=== PATIENT | male | born 1970 | race Caucasian/White ===

== ENCOUNTER 2018-01-14 15:56 | Inpatient (IN) | payer BC, OTHER ==
[2018-01-14 16:41] LABS: #Basophils 0.1 thou/uL (0.0-0.2); #Eosinphils 0.1 thou/uL (0.0-0.7); #Lymphocytes 2.3 thou/uL (1.20-3.40); #Monocytes 0.5 thou/uL (0.11-0.59); #Neutrophils 3.9 thou/uL (1.40-6.50); %Eosinophils 1.5 % (0.0-10.0); %Lymphocytes 33.4 % (21.0-51.0); Hemoglobin 16.3 g/dL (14.0-18.0); Mean Corpuscular Hemoglobin 30.2 pg (27.0-31.0); Mean Corpuscular Volume 86.2 fl (80.0-94.0); Mean Platelet Volume 7.7 fL (7.4-10.4); Platelet Count 226 thou/uL (130-400); RBC Distribution Width 11.7 % (11.5-14.5); White Blood Cell (WBC) Count 6.8 thou/uL (4.8-10.8)
[2018-01-14 17:02] LABS: ALT (SGPT) 32 U/L (8-55); AST (SGOT) 28 U/L (5-34); Albumin 4.7 g/dL (3.5-5.0); Alkaline Phosphatase 65 U/L (40-150); Anion Gap 15 mmol/L (10-20); BUN (Urea Nitrogen) 21 mg/dL (8.9-20.6); Bilirubin, Total 0.6 mg/dL (0.2-1.2); CK (CPK) 77 U/L (30-200); Calc. Creatinine Clearance 0 mL/min (70-130); Calcium 10.1 mg/dL (7.8-10.44); Carbon Dioxide 26 mmol/L (22-29); Chloride 102 mmol/L (98-107); Estimated GFR-MDRD 56; Globulin 3.4 g/dL (2.4-3.5); Glucose 94 mg/dL (70-105); Protein, Total 8.1 g/dL (6.0-8.3); Sodium 139 mmol/L (136-145)
[2018-01-14 17:05] LABS: CKMB 2.6 ng/mL (0-6.6); Troponin I Less than 0.010 ng/mL (< 0.028)
--- NOTE | 2018-01-14 17:37 | RAD ---
RADIOGRAPH CHEST SINGLE VIEW: INDICATIONS: Chest pain. FINDINGS: No consolidation or effusion. The cardiac silhouette is normal in size for the portable technique. There are leads overlying the chest, limiting detail. IMPRESSION: No focal consolidation. POS: SUGAR
[2018-01-14 17:38] LABS: Acetaminophen Less than 6.0 mcg/mL (10.0-30.0); Alcohol Less than 10 mg/dL (Less than 10); Salicylate Less than 8.0 mg/dL (15.0-30.0)
--- NOTE | 2018-01-14 18:12 | PDOC.FPRHP ---
- History of Present Illness Chief Complaint: Heart palpitation History of Present Illness: This is a 47 yo M w/a history of heart palpitation who presented to the ED on the recommendation of his supervisor pumping Dr Agarwal. He is currently wearing a event monitor due to outpatient work up for his palpitations. 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 Additionally, he had associated chest tightness and SOB. He denies associated dizziness, n/v, diaphoresis. He denies previous cardiac hx. He was called by Dr Agarwal's office after logging the event and was told that his heart rate was over 260. It was recommended that he come into the ED for further evaluation. A recent Holter monitor found over 200 ectopic supraventricular beats in a 24 hour period. He also recently had an echo and stress test in the outpatient setting which showed only a mild apical defect. In the ED the patient initial troponin was negative and EKG showed NSR with ectopic beat SV beats - Allergies/Adverse Reactions Allergies Allergy/AdvReac Type Severity Reaction Status Date / Time No Known Allergies Allergy Verified 01/14/18 19:54 - Home Medications Medication Instructions Recorded Confirmed Type Multivitamin [Men's Multi-Vitamin] 1 tablet PO DAILY 01/14/18 01/14/18 History - History PMHx: Sinus tach PSHx: None FHx: Paternal CAD Maternal CAD Social: Denies tobacco use 2-3 beers per week Denies recreational drugs - Review of Systems General: denies: fever/chills, weight/appetite/sleep changes Eyes: denies: vision changes ENT: denies: nasal congestion Respiratory: reports: shortness of breath (When he has palpitations). denies: cough, congestion Cardiovascular: reports: palpitation, other (Chest tightness). denies: chest pain, edema Gastrointestinal: reports: nausea (With palpitation). denies: vomiting Skin: denies: rashes, lesions Musculoskeletal: denies: pain, tenderness Neurological: denies: numbness, syncope, weakness Psychological: denies: anxiety, depression - Vital signs BP: 140/99 HR: 99 RR: 17 Tmax: 98.4 Pox: 97% on RA Wt: 86 kg - Physical Exam Constitutional: NAD, awake, alert and oriented HEENT: normocephalic and atraumatic, EOMI, no scleral icterus, grossly normal vision Neck: supple, FROM, trachea midline Chest: no-tender to palpation Heart: RRR, normal S1/S2, no murmurs/rubs/gallops Lungs: CTAB, no respiratory distress, good air movement Abdomen: soft, non-tender, bowel sounds present Musculoskeletal: normal structure, normal tone, ROM grossly normal Neurological: no focal deficit, CN II-XII intact Skin: no rash/lesions, good turgor Heme/Lymphatic: no unusual bruising or bleeding Psychiatric: normal mood and affect, good judgment and insight FMR H&P: Results - Labs Result Diagrams: 01/14/18 16:31 01/14/18 16:30 Lab results: WBC 6.8 thou/uL (4.8-10.8) 01/14/18 16:31 Hgb 16.3 g/dL (14.0-18.0) 01/14/18 16:31 Hct 46.5 % (42.0-52.0) 01/14/18 16:31 MCV 86.2 fl (80.0-94.0) 01/14/18 16:31 Plt Count 226 thou/uL (130-400) 01/14/18 16:31 Neutrophils % 57.0 % (42.0-75.0) 01/14/18 16:31 Sodium 139 mmol/L (136-145) 01/14/18 16:30 Potassium 4.0 mmol/L (3.5-5.1) 01/14/18 16:30 Chloride 102 mmol/L (98-107) 01/14/18 16:30 Carbon Dioxide 26 mmol/L (22-29) 01/14/18 16:30 BUN 21 mg/dL (8.9-20.6) H 01/14/18 16:30 Creatinine 1.38 mg/dL (0.6-1.3) H 01/14/18 16:30 Glucose 94 mg/dL (70-105) 01/14/18 16:30 Calcium 10.1 mg/dL (7.8-10.44) 01/14/18 16:30 Total Bilirubin 0.6 mg/dL (0.2-1.2) 01/14/18 16:30 AST 28 U/L (5-34) 04/09/18 16:30 ALT 32 U/L (8-55) 01/14/18 16:30 Alkaline Phosphatase 65 U/L (40-150) 01/14/18 16:30 Creatine Kinase 77 U/L (30-200) 01/14/18 16:30 CK-MB (CK-2) 2.6 ng/mL (0-6.6) 01/14/18 16:30 Serum Total Protein 8.1 g/dL (6.0-8.3) 01/14/18 16:30 Albumin 4.7 g/dL (3.5-5.0) 01/14/18 16:30 - EKG Interpretation EKG: NSR, ectopic supraventricular beats. No st or t wave changes - Radiology Interpretation Chest x-ray Status: report reviewed by me (no acute process, normal cardiac silhouette) FMR H&P: A/P - Problem List (1) Dysrhythmia, cardiac Current Visit: Yes Status: Acute Priority: High Code(s): I49.9 - CARDIAC ARRHYTHMIA, UNSPECIFIED Qualifiers: Arrhythmia type: unspecified cardiac arrhythmia Qualified Code(s): I49.9 - Cardiac arrhythmia, unspecified (2) LIZETH (acute kidney injury) Current Visit: Yes Status: Acute Priority: High Code(s): N17.9 - ACUTE KIDNEY FAILURE, UNSPECIFIED - Plan Cardiac arrhythmia - admit to tele obs - Consult Dr Agarwal. I would expect and EP consult prior to discharge as well. Will reevaluate following Card recommendation - Check CMP, Mg, and Phos - trend trops, low concern for ACS. HEART score 2. Clean stress test in the past month - NPO at midnight LIZETH - IVF, recheck BMP in am - monitor I/O Code: full PPx - SCD, frequent ambulation Diet NPO at midnight, then regular Dispo: Pt is currently stable and in NSR. Monitor as above. Likely LOS 24-48 hours FMR H&P: Upper Level - Pertinent history 47 year old white male sent to the ED by his supervisor pumping today after an episode of palpitations and tachycardia. He was climbing up a ladder at work today and then had symptoms shortly thereafter. Associated with diaphoresis, chest heaviness, and dyspnea. No presyncope, dizziness, chest pain or nausea. Episode lasted about 1 minute. His pressed the button on his Holter monitor and his supervisor pumping called him. He was told his heartrate was up to 269 and he was advised to go to the ED. He has been having episodes like this and reports he has been getting worked up by his PCP, Dr. Galarza, and his supervisor pumping, Dr. Agarwal. He recently had a negative stress test in Dr. Barclay office. Both of his parents had MIs and his older sister had a CVA fairly young. He has not other medical problems, takes no medications, denies tobacco and recreational drug use. Has 2- 3 beers per week. - Pertinent findings Vital Signs Temperature 98.3 RR 20 HR 83 BP 124/95 O2 sat 97% on RA Weight 86.1kg Physical Exam General: NAD. AAOx4. HEENT: Normocephalic, atraumatic. PERRLA, EOMI, nonicteric. Membranes moist. Oropharynx clear CV: RRR. No murmurs, rubs, or gallps auscultated. Pulses full and equal in all 4 extremities. Respiratory: Lungs CTAB. No wheezing, rales, or rhonchi. Nonlabored breathing. Abdomen: NT, ND, no guarding or rebound. Ext: No edema. Equal movements bilaterally Skin: No rash or ulcer. No palpable lesions Neuro: CN II-XII intact. NO focal deficits Psych: Mood and affect appropriate. Judgment and insight intact - Plan Date/Time: 01/14/18 378 I, Fernando Champagne DO, have evaluated this patient and agree with findings/plan as outlined by administrative intern resident. Pertinent changes/additions are listed here. A/P: 1) Cardiac dysrythmia - Monitor on telemetry. Trend cardiac enzymes. Check magnesium. EKG showed sinus rhythm with frequent PVCs. Consult cardiology 2) Probable acute kidney injury - No baseline creatinine available. Will give iv fluids 3) Code Status - Full 4) Fall precautions Attending Addendum - Attending Addendum Date/Time: 01/15/18 0353. Seen on 01/14. I personally evaluated the patient and discussed the management with Dr. Ny and Ihsan. No known drug allergies. I agree with and repeated the History, Examination, Assessment and Plan documented above with any addition or exceptions noted below.
[2018-01-14 20:05] VITALS: BMI 30.4
[2018-01-14] MEDS ORDERED: Ondansetron HCl/PF 4 MG/2 ML Vial IVP PRN (20:09)
[2018-01-14] MEDS ORDERED: Acetaminophen 325 MG TAB PO PRN (20:09)
[2018-01-14] MEDS ORDERED: Ondansetron ODT 4 MG TAB SL PRN (20:09)
[2018-01-14 20:44] LABS: Troponin I Less than 0.010 ng/mL (< 0.028)
[2018-01-14 21:09] LABS: Magnesium 2.5 mg/dL (1.6-2.6); Phosphorus 3.5 mg/dL (2.3-4.7)
[2018-01-14] MEDS: Sodium Chloride 0.9% 1,000 ML IV SCH (21:51)
[2018-01-14 23:26] LABS: Troponin I Less than 0.010 ng/mL (< 0.028)
[2018-01-15 05:02] LABS: #Eosinphils 0.2 thou/uL (0.0-0.7); #Lymphocytes 2.6 thou/uL (1.20-3.40); #Monocytes 0.5 thou/uL (0.11-0.59); #Neutrophils 2.7 thou/uL (1.40-6.50); %Basophils 0.8 % (0.0-1.0); %Eosinophils 2.8 % (0.0-10.0); %Lymphocytes 43.5 % (21.0-51.0); %Monocytes 8.2 % (0.0-10.0); %Neutrophils 44.6 % (42.0-75.0); Hemoglobin 15.1 g/dL (14.0-18.0); Mean Corpuscular HGB CONC 34.7 g/dL (32.0-36.0); Mean Corpuscular Hemoglobin 30.2 pg (27.0-31.0); Mean Corpuscular Volume 86.9 fl (80.0-94.0); Mean Platelet Volume 7.9 fL (7.4-10.4); Platelet Count 192 thou/uL (130-400); RBC Distribution Width 11.9 % (11.5-14.5); Red Blood Cell (RBC) Count 4.99 mill/uL (4.70-6.10)
[2018-01-15 05:23] LABS: ALT (SGPT) 28 U/L (8-55); AST (SGOT) 22 U/L (5-34); Alkaline Phosphatase 56 U/L (40-150); Anion Gap 9 mmol/L (10-20); BUN (Urea Nitrogen) 21 mg/dL (8.9-20.6); Bilirubin, Total 0.4 mg/dL (0.2-1.2); Calc. Creatinine Clearance 99 mL/min (70-130); Calcium 9.3 mg/dL (7.8-10.44); Carbon Dioxide 27 mmol/L (22-29); Chloride 108 mmol/L (98-107); Estimated GFR-MDRD 63; Globulin 2.7 g/dL (2.4-3.5); Glucose 97 mg/dL (70-105); Potassium 4.2 mmol/L (3.5-5.1); Protein, Total 6.7 g/dL (6.0-8.3); Sodium 140 mmol/L (136-145)
[2018-01-15] MEDS: Sodium Chloride 0.9% 1,000 ML IV SCH ×2 (05:34→15:10)
--- NOTE | 2018-01-15 05:58 | PDOC.FM ---
- Subjective Subjective: Patient dong well this AM. No significant overnight events. He denies any palpitations, chest pain, or shortness of breath this AM. Patient states he is hungry and would like to eat; however, uncertain of cardiology plans at this time, so will keep patient NPO. - Objective MAR Reviewed: Yes Vital Signs & Weight: Vital Signs (12 hours) Temp Pulse Resp BP Pulse Ox 01/15/18 04:45 97.9 F 73 14 114/72 96 01/14/18 23:45 98 F 79 15 106/61 95 01/14/18 19:45 97.5 F L 69 16 01/14/18 19:37 97.5 F L 69 16 119/73 96 Weight Weight 93.304 kg Result Diagrams: 01/15/18 04:45 01/15/18 04:45 EKG Reviewed by me: Yes Radiology Reviewed by me: No <Carmina Farley - Last Filed: 01/15/18 08:39> - Objective Vital Signs & Weight: Vital Signs (12 hours) Temp Pulse Resp BP Pulse Ox 01/15/18 11:56 98.1 F 69 24 H 115/81 97 01/15/18 08:00 98.3 F 73 20 01/15/18 07:50 98.3 F 73 20 121/83 95 01/15/18 04:45 97.9 F 73 14 114/72 96 Weight Weight 93.304 kg I&O: 01/14/18 01/15/18 01/16/18 06:59 06:59 06:59 Intake Total 1162 Balance 1162 Result Diagrams: 01/15/18 12:17 01/15/18 12:17 <Abby Galarza - Last Filed: 01/15/18 13:19> Phys Exam - Physical Examination Constitutional: NAD HEENT: moist MMs, sclera anicteric Neck: supple Respiratory: clear to auscultation bilateral Cardiovascular: RRR, no significant murmur Gastrointestinal: soft, non-tender, positive bowel sounds Musculoskeletal: no edema, pulses present Neurological: non-focal Psychiatric: normal affect Skin: no rash, cap refill <2 seconds <Carmina Farley - Last Filed: 01/15/18 08:39> Dx/Plan (1) Dysrhythmia, cardiac Code(s): I49.9 - CARDIAC ARRHYTHMIA, UNSPECIFIED Status: Acute QualifierTitle: Arrhythmia type: unspecified cardiac arrhythmia Qualified Code(s): I49.9 - Cardiac arrhythmia, unspecified (2) LIZETH (acute kidney injury) Code(s): N17.9 - ACUTE KIDNEY FAILURE, UNSPECIFIED Status: Acute - Plan Plan: Cardiac arrhythmia - Supraventricular ectopic beats captured on holter monitor - Admit to tele obs - Cardiology consulted (Dr. Agarwal); appreciate recs - Consider EP consult pending Stefano recs - CMP, Mg, and Phos wnl - Trops neg x3, low concern for ACS - HEART score 2 - Clean stress test in the past month LIZETH - IVF - Monitor I/O - Improved this AM PPx - SCD, frequent ambulation Dispo: Pt is currently stable and in NSR. Monitor as above. Likely LOS 24-48 hours. Will follow cardiology recommendations. <Carmina Farley - Last Filed: 01/15/18 08:39> Attending Addendum - Attending Addendum Date/Time: 01/15/18 9198 I personally evaluated the patient and discussed the management with Dr. Farley. I agree with the History, Examination, Assessment and Plan documented above with any addition or exceptions noted below. The patient is feeling better this morning. He remains NPO. Dr. Agarwal has seen the patient and is consulting Dr. Rodriguez for possible ablation. <Abby Galarza - Last Filed: 01/15/18 13:19>
[2018-01-15 12:33] LABS: #Basophils 0.1 thou/uL (0.0-0.2); #Eosinphils 0.1 thou/uL (0.0-0.7); #Monocytes 0.5 thou/uL (0.11-0.59); #Neutrophils 2.8 thou/uL (1.40-6.50); %Basophils 1.1 % (0.0-1.0); %Eosinophils 1.7 % (0.0-10.0); %Lymphocytes 36.5 % (21.0-51.0); %Monocytes 8.9 % (0.0-10.0); %Neutrophils 51.7 % (42.0-75.0); Hemoglobin 14.9 g/dL (14.0-18.0); Mean Corpuscular HGB CONC 32.8 g/dL (32.0-36.0); Mean Corpuscular Hemoglobin 28.6 pg (27.0-31.0); Mean Corpuscular Volume 87.4 fl (80.0-94.0); Mean Platelet Volume 7.6 fL (7.4-10.4); Platelet Count 200 thou/uL (130-400); Red Blood Cell (RBC) Count 5.21 mill/uL (4.70-6.10); White Blood Cell (WBC) Count 5.3 thou/uL (4.8-10.8)
[2018-01-15 12:38] LABS: PTT 29.1 SEC (22.9-36.1); Prothrombin Time 13.1 SEC (12.0-14.7)
[2018-01-15 12:49] LABS: Anion Gap 11 mmol/L (10-20); BUN (Urea Nitrogen) 17 mg/dL (8.9-20.6); Calc. Creatinine Clearance 108 mL/min (70-130); Calcium 9.1 mg/dL (7.8-10.44); Carbon Dioxide 26 mmol/L (22-29); Chloride 107 mmol/L (98-107); Estimated GFR-MDRD 69; Glucose 90 mg/dL (70-105); Potassium 4.3 mmol/L (3.5-5.1); Sodium 140 mmol/L (136-145)
--- NOTE | 2018-01-15 12:49 | CON ---
DATE OF CONSULTATION: 01/15/2018 REASON FOR CONSULTATION: SVT. HISTORY OF PRESENT ILLNESS: Mr. Rock is a very pleasant 47-year-old white gentleman who comes to the hospital for SVT. I saw him in the office recently for the first time for evaluation of palpita tions. He had an event monitor placed and had an episode of SVT last night at about 280 beats per mi nute. We called him and recommended that he needed to go to the hospital, that this rate was too fas t, so he agreed to and came in for evaluation. He was admitted for further care. His heart rate was about 283 and he was only a little bit dizzy, but not presyncopal and did not have any syncope. PAST MEDICAL HISTORY: Supraventricular tachycardia, otherwise negative. PAST SURGICAL HISTORY: None. FAMILY HISTORY: Both parents had coronary disease. SOCIAL HISTORY: 2-3 beers a week. No tobacco or drugs. REVIEW OF SYSTEMS: A 12 point review of systems was done and is all negative unless stated in the hi story of present illness. OUTPATIENT MEDICATIONS: None. ALLERGIES: No known drug allergies. PHYSICAL EXAMINATION: VITAL SIGNS: Temperature 97.9, pulse 73, respiration rate 14, satting 96% on room air, blood pressur e 114/72. GENERAL: Awake, alert, oriented x3, in no distress. HEENT: Normocephalic. NECK: Supple. LUNGS: Clear. CARDIOVASCULAR: S1, S2, no S3, S4, no murmurs, no rubs. ABDOMEN: Soft, positive bowel sounds. EXTREMITIES: No edema. SKIN: Warm and dry. LABORATORY WORK: Reviewed. CBC was normal. Chemistry was unremarkable except for mildly elevated B UN and creatinine which are back to normal this morning. Creatinine at 1.24 now from 1.38. Troponin s were undetectable x3. Albumin was normal. Toxicology was undetectable. Chest x-ray was unremarkable. 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 We will call Electrophysiology for consideration of ablation later today. He is to remain n.p.o. for now. Thank you for letting us participate in the care of your patient. We will follow the patient.
--- NOTE | 2018-01-15 18:53 | CON ---
DATE OF SERVICE: 01/15/2018 ELECTROPHYSIOLOGY CONSULTATION REFERRING PHYSICIAN: Dr. Eric Agarwal. REASON FOR CONSULTATION: SVT. HISTORY OF PRESENT ILLNESS: Mr. Rock is a very pleasant 47-year-old gentleman who come s to the hospital by the direction of Dr. Agarwal after an SVT at a rate of 280 beats per minute, was found on event monitor. Mr. Rock has been experiencing paroxysms of elevated heart rate and palp itations since summer. He has never had any episodes prior to this heart racing or palpitati ons. He denies any syncopal or near syncopal episodes. This is only recently when he was given a mo nitor by Dr. Agarwal when SVT was identified. He does report that he will occasionally feel just a bi t dizzy with elevated heart rates, but has not had any chest pain or pressure or stroke or stroke-lik e symptoms. PAST MEDICAL HISTORY: Negative with the exception of the current hospital visitation and newly-diagn osed SVT. SURGICAL HISTORY: None. FAMILY HISTORY: Strong family history of early-onset coronary artery disease in maternal and paterna l sides. SOCIAL HISTORY: Positive for moderate alcohol consumption of 2-3 beers a week and negative for tobac co or illicit drug use. REVIEW OF SYSTEMS: Twelve-point review of systems was conducted and is negative except that listed i n the HPI. ALLERGIES: No known allergies. HOME MEDICATIONS: None. PHYSICAL EXAMINATION: VITAL SIGNS: Most recent vital signs are temperature 98.1, pulse 69, respirations 20, oxygenation is 97% on room air, blood pressure 115/81. GENERAL: This is a well-nourished, groomed, well-appearing male in no acute distress. He is alert and oriented. HEENT: Speech is clear. His affect is appropriate. He is normocephalic, atraumatic. Sclerae are a nicteric. EOMs are intact. NECK: Supple without jugular venous distention. His thyroid is nonpalpable and there is no lymphade nopathy. His carotids are without bruit bilaterally with good brisk 2+ uptake bilaterally. CHEST: His lungs are clear to auscultation without wheezes, crackles or rhonchi. His respirations a re even and unlabored with good bilateral excursion. CARDIOVASCULAR: His heart rate is regularly regular, without murmur, rub or gallop. His PMI is nond isplaced. EXTREMITIES: Warm and dry to touch without clubbing, cyanosis or edema. ABDOMEN: Benign with abdomen soft and nontender. No palpable masses. Positive bowel sounds noted t hroughout. NEUROLOGIC: Grossly intact and nonfocal. His gait is stable. He ambulates around the room. DATABASE: His recent laboratory work was reviewed. CBC was normal. INR is 1.0. Chemistry on 01/15 , sodium 140, potassium 4.3, chloride 107, carbon dioxide 26, BUN is 17, creatinine is 1.14. Calcium is 9.1, phosphorus 3.5, magnesium 2.5. Serial troponins were negative. TSH is 2.5. Chest x-ray on 01/14/2018, negative for consolidation or effusion, normal cardiac silhouette, no focal consolidatio n by interpretation, review of telemetry and EKGs as well as event monitor. Since hospitalized, Mr. Rock has been in normal sinus rhythm with only a brief episode of paroxysmal SVT, sinus arrhythmi a and conducted PACs are noted. Event monitor review shows frequent episodes of SVT with rates up to 280 beats per minute. 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 PLAN: A long discussion was had with the patient regarding in SVT and various arrhythmias detailing AVNRT and treatment options. Plan is for patient to undergo EP study and ablation either later today or in the morning. The patient will be kept n.p.o. and consented for the above-mentioned diagnosis of SVT. All questions were answered. Risks with EP study and ablation include hematoma, damage to t he veins, perforation of the heart, damage to the electrical system, hemothorax, need for chest tube placement. The patient verbalizes understanding of these risks and wishes to proceed at the earliest convenience. All questions were answered. Thank you for allowing us to participate in the care of this patient: We will continue to follow thr ough his hospitalization. The patient will possibly be able to discharge same day if his ablation is tomorrow morning. Otherwise, we will remain overnight for monitoring.
[2018-01-15] MEDS ORDERED: Acetaminophen 325 MG TAB PO PRN (22:01)
[2018-01-15] MEDS ORDERED: Ondansetron ODT 8 MG TAB SL PRN (22:02)
--- NOTE | 2018-01-16 04:52 | PDOC.FM ---
- Subjective Subjective: Patient doing well this AM. No significant overnight events. Denies any chest pain, palpitations, shortness of breath or nausea. Discussed plan for ablation which he will likely undergo today. - Objective MAR Reviewed: Yes Vital Signs & Weight: Vital Signs (12 hours) Temp Pulse Resp BP Pulse Ox 01/15/18 23:28 97.6 F 78 16 96/63 94 L 01/15/18 20:05 98.4 F 84 18 01/15/18 18:34 98.4 F 84 18 117/77 92 L Weight Weight 93.304 kg I&O: 01/14/18 01/15/18 01/16/18 06:59 06:59 06:59 Intake Total 1162 1400 Balance 1162 1400 Result Diagrams: 01/15/18 12:17 01/15/18 12:17 EKG Reviewed by me: No Radiology Reviewed by me: No <Carmina Farley - Last Filed: 01/16/18 08:37> - Objective Vital Signs & Weight: Vital Signs (12 hours) Temp Pulse Resp BP BP Pulse Ox 01/16/18 12:00 97 01/16/18 11:54 98 F 72 16 123/80 97 01/16/18 11:35 97.1 F L 74 20 119/71 95 01/16/18 07:56 97.7 F 81 16 01/16/18 07:10 98.4 F 67 20 136/86 95 01/16/18 04:52 97.7 F 81 16 114/57 L 94 L Weight Weight 93.894 kg I&O: 01/15/18 01/16/18 01/17/18 06:59 06:59 06:59 Intake Total 1162 1960 Balance 1162 1960 Result Diagrams: 01/15/18 12:17 01/15/18 12:17 <Abby Galarza - Last Filed: 01/16/18 14:16> Phys Exam - Physical Examination Constitutional: NAD HEENT: moist MMs Neck: supple Respiratory: clear to auscultation bilateral Cardiovascular: RRR, no significant murmur Gastrointestinal: soft, no distention, positive bowel sounds Musculoskeletal: no edema, pulses present Neurological: non-focal Psychiatric: normal affect Skin: no rash, cap refill <2 seconds <Carmina Farley - Last Filed: 01/16/18 08:37> Dx/Plan (1) Dysrhythmia, cardiac Code(s): I49.9 - CARDIAC ARRHYTHMIA, UNSPECIFIED Status: Acute QualifierTitle: Arrhythmia type: unspecified cardiac arrhythmia Qualified Code(s): I49.9 - Cardiac arrhythmia, unspecified (2) LIZETH (acute kidney injury) Code(s): N17.9 - ACUTE KIDNEY FAILURE, UNSPECIFIED Status: Resolved - Plan Plan: Plan: Cardiac arrhythmia - Supraventricular ectopic beats captured on holter monitor - Admit to tele obs - Cardiology consulted (Dr. Agarwal); appreciate recs - EP consulted (Dr. Rodriguez); appreciate recs - CMP, Mg, and Phos wnl - Trops neg x3, low concern for ACS - HEART score 2 - Clean stress test in the past month - Plan for ablation today per Dr. Rodriguez LIZETH, resolved - Monitor I/O PPx - SCD, frequent ambulation Dispo: Pt is currently stable and in NSR. Patient to have ablation done today per Dr. Rodriguez. <Carmina Farley - Last Filed: 01/16/18 08:37> Attending Addendum - Attending Addendum Date/Time: 01/16/18 3439 I personally evaluated the patient and discussed the management with Dr. Farley. I agree with the History, Examination, Assessment and Plan documented above with any addition or exceptions noted below. He has had no more runs of SVT but pt notes he's been lying in bed and it only ever happens when he is moving around. Scheduled for ablation today. <Abby Galarza - Last Filed: 01/16/18 14:16>
--- NOTE | 2018-01-16 07:54 | EKG ---
Test Reason : Blood Pressure : / mmHG Vent. Rate : 062 BPM Atrial Rate : 062 BPM P-R Int : 142 ms QRS Dur : 088 ms QT Int : 374 ms P-R-T Axes : 036 022 020 degrees QTc Int : 379 ms Normal sinus rhythm Normal ECG When compared with ECG of 14-JAN-2018 16:05, (Unconfirmed) Premature supraventricular complexes are no longer Present Vent. rate has decreased BY 33 BPM Confirmed by ALLISON BAUER ([id number]) on 01/16/2018 7:54:32 AM Referred By: [facility] Confirmed By:ALLISON BAUER
--- NOTE | 2018-01-16 12:52 | PDOC.CTH ---
Cardiology Progress Note - Subjective Doing well. Scheduled to have SVT ablation later today. - Objective Vital Signs Temp Pulse Resp BP BP Pulse Ox 01/16/18 12:00 97 01/16/18 11:54 98 F 72 16 123/80 97 01/16/18 11:35 97.1 F L 74 20 119/71 95 01/16/18 07:56 97.7 F 81 16 01/16/18 07:10 98.4 F 67 20 136/86 95 01/16/18 04:52 97.7 F 81 16 114/57 L 94 L Weight 207 lb 01/15/18 01/16/18 01/17/18 06:59 06:59 06:59 Intake Total 1162 1960 Balance 1162 1960 - Physical Examination General/Neuro: alert & oriented x3, NAD Neck: no JVD present Lungs: CTA, unlabored respirations Heart: RRR Abdomen: NT/ND Extremities: other: (no edema.) - Telemetry Telemetry Rhythm: NSR - Labs Result Diagrams: 01/15/18 12:17 01/15/18 12:17 Troponin/CKMB CK-MB (CK-2) 2.6 ng/mL (0-6.6) 01/14/18 16:30 Troponin I Less than 0.010 ng/mL (< 0.028) 01/14/18 22:54 - Assessment/Plan 1. SVT PLAN: - EP to do ablation later today .
[2018-01-16] MEDS ORDERED: Lidocaine 1% (PF) 30 ML VIAL ONE (14:16)
[2018-01-16] MEDS ORDERED: Heparin 10,000 UNITS/1 ML VIAL ONE ×2 (14:17→20:47)
[2018-01-16] MEDS ORDERED: PROPOFOL 200 MG/20 ML VIAL ONE (15:16)
[2018-01-16] MEDS ORDERED: Fentanyl 100 MCG/2 ML VIAL ONE (16:56)
[2018-01-16] MEDS ORDERED: Midazolam HCl 2 mg/2 ml Vial ONE (16:56)
[2018-01-16] MEDS ORDERED: Ketamine 50 MG/ML VIAL ONE (16:57)
[2018-01-16] MEDS ORDERED: Propofol 500 MG/50 ML VIAL ONE (17:07)
[2018-01-16 18:48] VITALS: TEMP 96.5
[2018-01-16 19:14] VITALS: BP 119/65
--- NOTE | 2018-01-17 04:56 | DIS-2 ---
DATE OF ADMISSION: 01/14/2018 DATE OF DISCHARGE: 01/16/2018 ADMITTING ATTENDING: Dr. Sam Davis DISCHARGE ATTENDING: Dr. Abby Galarza RESIDENT: Dr. Carmina Farley CONSULTATIONS: 1. Cardiology, Dr. Eric Agarwal. 2. Electrophysiology, Dr. Brandon Rodriguez. PROCEDURES: 1. Chest x-ray, no focal consolidation. PRIMARY DISCHARGE DIAGNOSES: 1. 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 2. Acute kidney injury. DISCHARGE MEDICATIONS: 1. Tylenol 650 mg every 4 hours as needed. 2. Diltiazem 60 mg oral 3 times daily. 3. Multivitamins 1 tablet oral daily. HISTORY OF PRESENT ILLNESS/HOSPITAL COURSE: This is a 47-year-old male with a history of heart palpitations who presented to the emergency department on the recommendation of his passport support manager, Dr. Agarwal. He is currently wearing an event monitor due to outpatient workup for his palpitations. 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 He had some associated chest tightness and shortness of breath. He denied any associated dizziness, nausea, vomiting or diaphoresis. Patient denies any prior cardiac history. He was called by Dr. Agarwal's office after a logging event and was told that his heart rate was over 260 and it was recommended he come to the ED for further evaluation. A recent Holter monitor found over 200 ectopic supraventricular beats in a 24-hour period. He also had a recent echo and stress test in outpatient setting which showed only mild apical defect. In the emergency department, the EKG showed normal sinus rhythm with ectopic supraventricular beats. The patient remained stable throughout the course of his hospital stay. He had no events on telemetry during his stay. Dr. Agarwal did see patient upon admission and he consulted mechatronics technician, Dr. Rodriguez. There were plans for ablation of SVT, however, due to emergencies that required the collaborative teacher, the procedure was delayed. Dr. Rodriguez spoke with the patient regarding options, and they both decided on an outpatient ablation. In the meantime, the patient was started on 60 mg diltiazem TID or as tolerated for arrhythmias. The patient had no complications during this hospital stay. DISPOSITION: Stable. DISCHARGE INSTRUCTIONS: 1. Location: Home. 2. Diet: Heart healthy. 3. Activity: As tolerated. 4. Followup: The patient is to follow up with his primary care physician, Dr. Abby Galarza within 7 days of discharge from the hospital. Additionally, he is to follow up with Dr. Rodriguez, mechatronics technician to have SVT ablation performed. This was discussed with the patient at length and he was in understanding and agreeable with the plan. JEREMY
--- NOTE | 2018-01-17 17:05 | PRG ---
DATE OF SERVICE: 01/16/2018 I am seeing Mr. Rock at our [facility] as a followup SUBJECTIVE: He seems to be doing well. No recurrent palpitations noted. OBJECTIVE DATA: VITAL SIGNS: Blood pressure is 117/83, heart rate 69, respirations 16, temperature 96.5 degrees Fahrenheit. GENERAL: He is alert and oriented man in no apparent distress. NECK: Supple. Jugular veins not distended. CHEST: Coarse without crackles. CARDIOVASCULAR: Heart sounds are regular to rate and rhythm. No murmur or gallop. ABDOMEN: Benign. Bowel sounds positive. EXTREMITIES: Lower extremities without edema, clubbing, or cyanosis. DATABASE: The EKGs reviewed revealing sinus rhythm. No recurrent SVT. ASSESSMENT: Mr. Rock is a pleasant 47-year-old man with history of recurrent supraventricular tachycardia documented by event monitoring. He is here with recurrent palpitations, but has been stable on the floor. We were planning ablation procedure for him, but due to cathlab emergencies, his case has been canceled. PLAN: I am going to bring him back for SVT ablation as an outpatient. In the meantime, I initiated diltiazem 60 mg 3 times a day or as tolerated in terms suppression of his arrhythmias. He understands and we will make arrangements for him to have this procedure done at a near date. Thank you again for allowing me to participate in the care of this patient. JEREMY
== END 2018-01-16 19:43 | disposition home or self-care (01) | DRG 309 ==
LOC: ERS 15:56 → 2SW 19:21 → OBSVTOIN 19:21 → 2NO 01-16 11:55
PROVIDERS: ADMIT Emergency Medicine; ATTEND Emergency Medicine
DX: I47.1 Supraventricular tachycardia (principal); N17.9 Acute kidney failure, unspecified
CPT/HCPCS: 36415; 71045; 80053; 80307; 82550; 82553; 83735; 84100; 84443; 84484; 85025; 85610; 85730; 93005; 93010; J1644; J2001; J2250; J2704; J3010

== ENCOUNTER 2018-01-21 10:32 | Observation (INO) | payer BC ==
[2018-01-18 17:05] VITALS: BMI 29.5
[2018-01-21] MEDS ORDERED: Lidocaine 1% (PF) 30 ML VIAL ONE (13:41)
[2018-01-21] MEDS ORDERED: Heparin 10,000 UNITS/1 ML VIAL ONE ×2 (13:41→15:32)
[2018-01-21] MEDS ORDERED: Propofol 1,000 MG/100 ML VIAL IV ONE (14:23)
[2018-01-21] MEDS ORDERED: Promethazine HCl 25 MG/ML VIAL ONE (14:23)
[2018-01-21] MEDS ORDERED: Lidocaine 2% Jelly 5 ML TUBE ONE (14:48)
[2018-01-21] MEDS ORDERED: Ondansetron HCl/PF 4 MG/2 ML Vial ONE ×2 (14:52→16:00)
[2018-01-21] MEDS ORDERED: Propofol 500 MG/50 ML VIAL ONE ×3 (15:20→16:13)
[2018-01-21] MEDS ORDERED: Isoproterenol 0.2 MG/1 ML AMP ONE (15:29)
[2018-01-21] MEDS ORDERED: Heparin 25,000 units/D5W 500 ML ONE (15:53)
[2018-01-21] MEDS ORDERED: Heparin 10,000 UNITS/ 10 ML VIAL ONE (16:00)
[2018-01-21] MEDS ORDERED: PROPOFOL 200 MG/20 ML VIAL ONE (16:00)
[2018-01-21] MEDS ORDERED: Protamine Sulfate 50 MG/5 ML VIAL ONE (16:49)
[2018-01-21] MEDS ORDERED: Ondansetron HCl/PF 4 MG/2 ML Vial IVP PRN ×2 (17:17→17:23)
[2018-01-21] MEDS ORDERED: Silver Sulfadiazine 1% Cream 50 GM JAR TOP PRN (17:23)
[2018-01-21] MEDS ORDERED: Bisacodyl 10 MG SUPP PR PRN (17:23)
[2018-01-21] MEDS ORDERED: diphenhydrAMINE 25 MG CAP PO PRN (17:23)
[2018-01-21] MEDS ORDERED: Nitroglycerin 0.4 MG TAB (25 Tab Bottle) SL PRN (17:23)
[2018-01-21] MEDS ORDERED: Temazepam 15 MG CAP PO PRN (17:23)
[2018-01-21] MEDS ORDERED: Acetaminophen 325 MG TAB PO PRN (17:23)
[2018-01-21] MEDS ORDERED: Bisacodyl 5 MG TAB PO PRN (17:23)
[2018-01-21] MEDS ORDERED: traMADol HCl 50 MG TAB PO PRN (17:23)
[2018-01-21] MEDS ORDERED: Mag-Al 1200 mg/1200 mg/30 ML UDCUP PO PRN (17:23)
[2018-01-21] MEDS ORDERED: Fentanyl 100 MCG/2 ML VIAL ONE (17:56)
[2018-01-21] MEDS ORDERED: Meperidine HCl/PF 25 MG/ML VIAL ONE (17:56)
[2018-01-21] MEDS ORDERED: Meperidine HCl/PF 25 MG/ML VIAL SLOW IVP SCH (18:30)
--- NOTE | 2018-01-21 23:14 | OP ---
DATE OF PROCEDURE: 01/21/2018 REFERRING PHYSICIAN: Dr. Eric Agarwal. I am seeing Mr. Rock at [facility] for SVT. He is here for EP study and radiofrequency ablation. PROCEDURE: The patient received deep sedation by Anesthesia specialist. After adequate level of sed ation achieved, both femoral veins were prepped, draped and anesthetized using subcutaneous lidocaine with ultrasound guidance, the left femoral vein was accessed x2 with ultrasound guidance and 8 and 6 -Citizen [place] short sheath was introduced. A decapolar catheter was advanced to the CS position and octapo lar catheter was advanced to the His bundle position. Pacing mapping and recording was obtained in e ach location. The baseline measurements were sinus cycle length 643, RI was 123. The QRS 85, QT 326, AH 88, HV 35 milliseconds measured. VA conduction was measured, VA Wenckebach cycle length is 280 milliseconds, e ccentric ventricular activation was present. Antegrade Wenckebach cycle length was about 200 millise conds. No dual AV lukas physiology was demonstrated. With atrial stimuli testing, the AV lukas ERP was less than 600/200. Following that burst atrial and ventricular pacing was also performed. Event ually on isuprel were easily inducing a supraventricular tachycardia with a cycle length of about 260 milliseconds with eccentric retrograde atrial activation was demonstrated earliest at the CS 5 and 6 location. Tachycardia cycle length was about 230 milliseconds. Rate about 262 beats per minute con sistent with the presenting tachycardia. The ventricular overdrive pacing demonstrated VA response a fter entrainment. The tachycardia was both inducible from the atrium and ventricle as well. Following that, the decision was made to perform transseptal catheterization. The right femoral vein was accessed with ultrasound guidance and a 10-Citizen [place] sheath was introduced for ice catheter. This ice catheter was used to monitor the transseptal procedure to rule out pericardial effusion. Followi ng that, a SL1 sheath was used to perform transseptal puncture with the help of NONO transs eptal needle. The SL1 catheter, after heparin administration, we adjusted to keep ACT over 350. A T hermoCool ST catheter was advanced to the left atrium and activation mapping was performed during tac hycardia. Eventually, accessory pathway potential was also recorded at the mid posterior annular are a. Ablation at this location with a total of 90 seconds, 40 aviles eliminated the eccentric retrograd e activation and also inducibility of the tachycardia. The tachycardia remained noninducible after I suprel administration and total wait time of about 30 minutes. Post-ablation, the AV Wenckebach cycle length 260, retrograde Wenckebach cycle length 270 millisecond s, normal HV again demonstrated unchanged. The cardiac silhouette did not change. CONCLUSION: 1. AV re-entry tachycardia was inducible utilizing a left mid posterior pathway. 2. Radiofrequency ablation and we did inducible tachycardia and the eccentric VA activation. 3. Short atypical atrial flutter was induced, which was stat terminated. Otherwise, no other arrhyt hmias were seen. 4. Normal conduction parameters demonstrate pre and post-ablation. PLAN: Routine postop care, taper off AV lukas blocking agents.
[2018-01-22 07:50] VITALS: BP 108/77; TEMP 98.3
[2018-01-22] MEDS ORDERED: Multivit, Therapeutic 1 TAB PO SCH (09:00)
--- NOTE | 2018-01-22 20:39 | DIS ---
DATE OF DISCHARGE: 01/22/2018 HOSPITAL COURSE: Mr. Rock was admitted after an elective EP study and ablation procedure. He re mained stable overnight and subsequent day, blood pressure 108/77, heart rate 81, respirations 20, te mperature 98.3 degrees Fahrenheit. No evident hematoma as per nursing lab support tech report. He alexsandra ined stable. CONCLUSION: Stable patient one day after electrophysiology study and left posterolateral accessory p athway ablation. PLAN: Discharge home and follow up in the office in 6 weeks.
--- NOTE | 2018-01-27 08:41 | EKG ---
Test Reason : Blood Pressure : / mmHG Vent. Rate : 097 BPM Atrial Rate : 097 BPM P-R Int : 132 ms QRS Dur : 084 ms QT Int : 332 ms P-R-T Axes : 040 026 014 degrees QTc Int : 421 ms Normal sinus rhythm Normal ECG When compared with ECG of 15-JAN-2018 12:21, Vent. rate has increased BY 35 BPM Confirmed by DUNG CRUZ MD ([id number]) on 01/27/2018 8:40:34 AM Referred By: [facility] Confirmed By:DUNG CRUZ MD
--- NOTE | 2018-01-27 08:42 | EKG ---
Test Reason : Blood Pressure : / mmHG Vent. Rate : 068 BPM Atrial Rate : 068 BPM P-R Int : 142 ms QRS Dur : 084 ms QT Int : 364 ms P-R-T Axes : 043 023 021 degrees QTc Int : 387 ms Normal sinus rhythm Normal ECG When compared with ECG of 21-JAN-2018 17:32, (Unconfirmed) No significant change was found Confirmed by DUNG CRUZ MD ([id number]) on 01/27/2018 8:41:49 AM Referred By: [facility] Confirmed By:DUNG CRUZ MD
== END 2018-01-22 11:57 | disposition home or self-care (01) ==
LOC: CCL 10:32 → 2SW 17:18
PROVIDERS: ADMIT Internal Medicine Cardiovascular Disease; ATTEND Internal Medicine Cardiovascular Disease
PROC: 4A023FZ Measurement of Cardiac Rhythm, Percutaneous Approach (ICD-10-PCS; principal; 2018-01-21)
PROC: 4A0234Z Measurement of Cardiac Electrical Activity, Percutaneous Approach (ICD-10-PCS; 2018-01-21)
PROC: 02583ZZ Destruction of Conduction Mechanism, Percutaneous Approach (ICD-10-PCS; 2018-01-21)
DX: I47.1 Supraventricular tachycardia (principal); Z79.899 Other long term (current) drug therapy
CPT/HCPCS: 85347; 93005; 93010; 93462; 93613; 93622; 93623; 93653; 93662; 96374; C1730; C1759; C1769; G0378; J1644; J2001; J2175; J2405; J2550; J2704; J2720; J3010